=== PATIENT | male | born 1980 | race Caucasian/White ===

== ENCOUNTER 2017-01-16 16:05 | Emergency (ER) | payer OTHER ==
--- NOTE | 2017-02-15 21:25 | ER ---
ADMIT: 01/16/2017 RM/LOC: ER [facility] MR#: [id number] [address] [id number] BELKIS SIU [address] [place] [address] Emergency Room Report SEX: M AGE: 36 : 1980 DATE: 01/16/2017 ADDENDUM: This patient comes to the ER for a left leg pain. He has had pain for 4 days. On October 08, he fractured his lower leg, just went back to work yesterday with his leg continues to be sore and swollen and he is having difficulty bearing weight. On physical exam, the left leg is quite swollen, he has a lot of pain in his calf, pulses are equal bilaterally in the lower extremities. Sensation is intact. Ultrasound showed a DVT of his left leg. The patient was given [place] in the ER and Xarelto. I spoke with Dr. Patel, and he will follow up with this patient. Meanwhile, he is to take Xarelto 15 mg; [place] 5 mg, dispensed #30, and he is to see Dr. Patel on Friday. Please see my T-sheet. MARIA DEL ROSARIO Servin / Jon Hwang MD / nataliial JOB #: [id number] CC: Jon Hwang MD, Attending Physician Poncho Eaton MD, Family Physician
== END 2017-01-16 20:41 | disposition home or self-care (01) ==
LOC: RAD.S 16:05 → ER 16:05 → RAD.S 17:00 → EDSTATUS 17:00 → ER 20:41
DX: I82.402 Acute embolism and thrombosis of unspecified deep veins of left lower extremity (principal); F17.210 Nicotine dependence, cigarettes, uncomplicated

== ENCOUNTER 2017-02-01 09:55 | Emergency (ER) | payer OTHER ==
--- NOTE | 2017-02-07 11:08 | ER ---
ADMIT: 02/01/2017 RM/LOC: ER [facility] MR#: [id number] [address] [facility] [address] [place], [place] [address] OFE DARIUSBELKIS NATHAN [address] [place] [address] Emergency Room Report SEX: M AGE: 36 : 1980 DATE: 02/01/2017 ADDENDUM: No [place]adian-speaking sales and service specialist available for this patient, so I helped Dr. Mccarty with a physical examination, and disposition of patient. This 36-year-old male, presents to the emergency room with his . He had surgery in his left leg and developed a DVT. He was put on Xarelto and now for the last 2 days, he has had some blood in the stool and bloody nose that started 3 hours prior to coming to the emergency room. REVIEW OF SYSTEMS: Negative. PAST MEDICAL HISTORY: DVT, left leg surgery. He has been on Xarelto and hydrocodone. He is a smoker, half a pack. He has not told the his situation with the bleeding and today after the came from work, realized what was going on and she panicked and brought him to the ER and was pacing the floor and screaming and crying and that is how I got involved with this patient. PHYSICAL EXAMINATION: He has had epistaxis, but a clamp was applied and that stopped the bleeding. His vitals were within normal limits. He was given IV fluids, he still has an edema, 2+ pitting in the left lower leg. LABORATORY DATA: Came back with a white cell count of 11.7, hemoglobin normal. Glucose 103. Blood type A positive. PTT 32.5. CLINICAL IMPRESSION: Epistaxis, hypercoagulated state secondary to deep venous thrombosis. Dr. Sanabria was contacted by Dr. Mccarty and he recommends patient to stop the anticoagulants for the next 2 days. Give him a call on Friday and he will be evaluating the patient at that time. The patient discharged with instructions. MARIA DEL ROSARIO Mcgowan / Keith Mccarty MD / stefany JOB #: [id number] CC: Keith Mccarty MD, Attending Physician UNKNOWN, Family Physician
== END 2017-02-01 13:35 | disposition home or self-care (01) ==
LOC: ER 09:55
DX: R04.0 Epistaxis (principal); Z98.890 Other specified postprocedural states

== ENCOUNTER → 2017-02-03 | Outpatient (CLI) | payer OTHER | END | disposition home or self-care (01) | LOC: RAD.S 14:51 | DX: I82.442 Acute embolism and thrombosis of left tibial vein (principal); K62.5 Hemorrhage of anus and rectum; R04.0 Epistaxis ==

== ENCOUNTER → 2017-02-04 | Outpatient (CLI) | payer OTHER | END | disposition home or self-care (01) | LOC: RAD.S 16:00 | DX: R51 Headache (principal); R06.02 Shortness of breath; I82.409 Acute embolism and thrombosis of unspecified deep veins of unspecified lower extremity ==

== ENCOUNTER 2017-02-07 21:42 | Emergency (ER) | payer OTHER ==
--- NOTE | 2017-02-11 10:18 | ER ---
ADMIT: 02/07/2017 RM/LOC: ER [facility] MR#: [id number] [address] [facility] [address] [place], [place] [address] THAKUR BETHANIE ROBLES [address] [place] [address] Emergency Room Report SEX: M AGE: 36 : 1980 DATE: 02/07/2017 TIME: 2141 Please refer to my T-sheet for complete H and P. HISTORY OF PRESENT ILLNESS: Briefly, the patient is a 36-year-old, who has a history of a DVT in his left leg. He is on Xarelto. He started to have a nose bleed about an hour ago. He has had no trauma and it has been moderate-to- mild. He has been holding pressure. He thinks this maybe even stopped. He has had this in the past. PHYSICAL EXAMINATION: VITAL SIGNS: Stable. His blood pressure is 138/80. GENERAL: No acute distress. HEENT: He has some mild oozing from bilateral nares. Very minimal. No obvious spot. Throat clear. NECK: Supple. Full range of motion. LUNGS: Clear. EMERGENCY DEPARTMENT COURSE: I packed both nares with adrenalin-soaked gauze and left in for about 15-20 minutes. I removed. There was no real active bleeding. I went ahead and repacked with adrenaline. I am going to have him remove it when he gets home. I talked to him about care. We sent him home with Mariaa. He was ready for discharge. ASSESSMENT: Acute epistasis, bilateral and anterior and just kind of oozing. PLAN: Hold Xarelto tomorrow and then resume it. We gave him Afrin, use t.i.d. for 2 days. Return if worse. Hold pressure if it recurs and follow up with Dr. Andrews next week if they are still having problems. Davis Zaragoza MD/ stefany JOB #: [id number] CC: Davis Zaragoza MD, Attending Physician Senthil Patel MD, Family Physician Mamadou Andrews MD
== END 2017-02-07 22:30 | disposition home or self-care (01) ==
LOC: ER 21:42
PROC: 0W3Q7ZZ Control Bleeding in Respiratory Tract, Via Natural or Artificial Opening (ICD-10-PCS; principal; 2017-02-07)
DX: R04.0 Epistaxis (principal); F17.210 Nicotine dependence, cigarettes, uncomplicated; Z86.718 Personal history of other venous thrombosis and embolism; Z79.01 Long term (current) use of anticoagulants

== ENCOUNTER 2017-02-10 12:16 | Day surgery (SDC) | payer OTHER | END 2017-02-10 16:30 | disposition home or self-care (01) | DX: I82.403 Acute embolism and thrombosis of unspecified deep veins of lower extremity, bilateral (principal); Z79.899 Other long term (current) drug therapy ==

== ENCOUNTER → 2017-02-24 | Outpatient (CLI) | payer OTHER | END | disposition home or self-care (01) | LOC: RAD.S 13:06 | DX: I82.442 Acute embolism and thrombosis of left tibial vein (principal); R51 Headache; R06.02 Shortness of breath ==

== ENCOUNTER → 2017-07-04 | Outpatient (CLI) | payer OTHER | END | disposition home or self-care (01) | LOC: RAD.S 07-03 15:30 | DX: R51 Headache (principal); I82.403 Acute embolism and thrombosis of unspecified deep veins of lower extremity, bilateral; I87.012 Postthrombotic syndrome with ulcer of left lower extremity; R06.02 Shortness of breath ==

== ENCOUNTER → 2017-07-21 | Day surgery (SDC) | payer OTHER ==
[~2017-07-21] VITALS: Ht 185.4 cm; Wt 84.4 kg
== END | disposition home or self-care (01) ==
LOC: RAD.S 08:43 → EDSTATUS 09:00
PROC: 06PY3DZ Removal of Intraluminal Device from Lower Vein, Percutaneous Approach (ICD-10-PCS; principal; 2017-07-21)
DX: Z45.2 Encounter for adjustment and management of vascular access device (principal); Z86.718 Personal history of other venous thrombosis and embolism; Z79.899 Other long term (current) drug therapy